=== PATIENT | female | born 1995 | race Caucasian/White ===

== ENCOUNTER 2016-08-05 08:18 | Emergency (ER) | payer OTHER ==
[~2016-08-05] VITALS: Ht 162.6 cm; Wt 76.0 kg
[~2016-08-05 08:18] MED LIST: IBUP400T22 PO
[2016-08-05 08:29] VITALS: Ht 162.6 cm; Wt 76.0 kg
[2016-08-05] MEDS ORDERED: ONDANSETRON 4 MG INJ IV STA (09:22)
[2016-08-05] MEDS ORDERED: morphine 4 MG/ML VIAL IV STA (09:22)
--- NOTE | 2016-08-05 10:05 | ERD ---
ER Documentation Chief Complaint Date/Time DATE: 08/05/16 TIME: 10:05 Chief Complaint PELVIC PAIN RADIATING UP HPI Is a 20-year-old female who presents the emergency department today complaining of lower abdominal pain for the past 2-3 days. States she has some nausea. Denies any fevers or chills, dysuria, vaginal discharge. States she is sexually active with one partner and just finished her menstrual cycle. ROS All systems reviewed and are negative except as per history of present illness. Medications Home Meds Active Scripts Ondansetron Hcl* (Zofran*) 4 Mg Tablet, 4 MG PO Q6H for NAUSEA AND/OR VOMITING, #30 TAB Prov:JOEL STUBBS PA-C 08/05/16 Naproxen* (Naprosyn*) 500 Mg Tablet, 500 MG PO BID Y for PAIN AND/OR INFLAMMATION, #30 TAB Prov:JOEL STUBBS PA-C 08/05/16 Hydrocodone/Acetaminophen ([place] 5-325 Tablet) 1 Each Tablet, 1 TAB PO Q6H Y for PAIN, #10 TAB Prov:JOEL STUBBS PA-C 08/05/16 Ibuprofen* (Motrin*) 400 Mg Tab, 400 MG PO Q6H Y for PAIN AND OR ELEVATED TEMP, #30 Prov:ANA HAMMOND PA-C 01/09/15 Allergies Allergies: Coded Allergies: No Known Allergy (Unverified , 12/07/14) PMhx/Soc Medical and Surgical Hx: pt denies Medical Hx, pt denies Surgical Hx History of Surgery: No Anesthesia Reaction: No Hx Neurological Disorder: No Hx Respiratory Disorders: No Hx Cardiac Disorders: No Hx Psychiatric Problems: No Hx Miscellaneous Medical Probl: No Hx Alcohol Use: No Hx Substance Use: No Hx Tobacco Use: No Smoking Status: Never smoker Physical Exam Vitals Vital Signs Date Time Temp Pulse Resp B/P Pulse Ox O2 Delivery O2 Flow Rate FiO2 08/05/16 08:29 98.4 60 18 111/81 98 Physical Exam Const: Mild distress Head: Atraumatic Eyes: Normal Conjunctiva ENT: Normal External Ears, Nose and Mouth. Neck: Full range of motion..~ No meningismus. Resp: Clear to auscultation bilaterally Cardio: Regular rate and rhythm, no murmurs Abd: Soft, diffuse lower abdominal pain, non distended. Normal bowel sounds. No right upper quadrant pain. Skin: No petechiae or rashes Back: No midline or flank tenderness. No CVA tenderness. Ext: No cyanosis, or edema Neur: Awake and alert Psych: Normal Mood and Affect Result Diagram: 08/05/16 1155 08/05/16 1155 Results 24 hrs Laboratory Tests Test 08/05/16 09:57 08/05/16 11:55 Urine Color LT. YELLOW Urine Clarity CLEAR Urine pH 6.0 Urine Specific [place] 1.025 Urine Ketones NEGATIVE Urine Nitrite NEGATIVE Urine Bilirubin NEGATIVE Urine Urobilinogen 0.2 E.U./dL Urine Leukocyte Esterase TRACE Urine Microscopic RBC NONE SEEN/HPF Urine Microscopic WBC 0-2/HPF Urine Squamous Epithelial Cells FEW Urine Bacteria FEW Urine Hemoglobin NEGATIVE Urine Glucose NEGATIVE% Urine Total Protein NEGATIVE White Blood Count 14.710^3/ul Red Blood Count 4.6410^6/ul Hemoglobin 14.1g/dl Hematocrit 40.9% Mean Corpuscular Volume 88.1fl Mean Corpuscular Hemoglobin 30.4pg Mean Corpuscular Hemoglobin Concent 34.5g/dl Red Cell Distribution Width 12.7% Platelet Count 01197^3/UL Mean Platelet Volume 8.7fl Neutrophils % 79.2% Lymphocytes % 14.7% Monocytes % 4.6% Eosinophils % 0.7% Basophils % 0.3% Nucleated Red Blood Cells % 0.0/100WBC Neutrophils # 11.610^3/ul Lymphocytes # 2.210^3/ul Monocytes # 0.710^3/ul Eosinophils # 0.110^3/ul Basophils # 0.110^3/ul Nucleated Red Blood Cells # 0.010^3/ul Sodium Level 138mmol/L Potassium Level 4.9mmol/L Chloride Level 105mmol/L Carbon Dioxide Level 27mmol/L Anion Gap 11 Blood Urea Nitrogen 13mg/dl Creatinine 0.55mg/dl Glucose Level 85mg/dl Calcium Level 9.1mg/dl Total Bilirubin 0.6mg/dl Direct Bilirubin 0.00mg/dl Indirect Bilirubin 0.6mg/dl Aspartate Amino Transf (AST/SGOT) 36IU/L Alanine Aminotransferase (ALT/SGPT) 20IU/L Alkaline Phosphatase 71IU/L Total Protein 7.8g/dl Albumin 4.9g/dl Globulin 2.90g/dl Albumin/Globulin Ratio 1.68 Lipase 102U/L Current Medications Medications (Trade) Dose Ordered Sig/Lamberto Route PRN Reason Start Time Stop Time Status Last Admin Dose Admin Morphine Sulfate (morphine) 4 mg ONCE STAT IV 08/05/16 09:22 08/05/16 09:24 DC 08/05/16 10:09 Ondansetron HCl (Zofran Inj) 4 mg ONCE STAT IV 08/05/16 09:22 08/05/16 09:24 DC 08/05/16 10:07 Ketorolac Tromethamine (Toradol) 30 mg ONCE STAT IV 08/05/16 13:16 08/05/16 13:17 DC 08/05/16 13:43 DIAGNOSTIC IMAGING REPORT Patient: HERMILO NICOLAS : 1995 Age: 20 Sex: F MR #: [id number] DOS: 08/05/16921 Ordering MD: JOEL STUBBS PA-C Location: [facility] Room/Bed: PROCEDURE: CT Abdomen and Pelvis without contrast. CLINICAL INDICATION: Lower abdominal pain for 3 days. TECHNIQUE: CT scan of the abdomen and pelvis without contrast was performed on a multidetector high-resolution CT scanner. The patient was scanned without intravenous contrast. Coronal and sagittal reformatted images were obtained from the axial source images. Images were reviewed on a high-resolution PACS workstation. The total exam CTDI equals 9.88 mGy and the total exam DLP equals 552.9 mGy-cm. One or the following dose reduction techniques were used: -Automated exposure control. -Adjustment of the mA and/or KV according to patient's size. -Use of iterative reconstruction technique. COMPARISON: None. FINDINGS: Lung Bases: Unremarkable. GI:. Unremarkable. Liver: Unremarkable. Gallbladder: Unremarkable. Pancreas: Unremarkable. Spleen: Unremarkablel Adrenals: Unremarkable. Kidneys: There is a faintly calcified nonobstructing 2.0 mm calculus in the lower pole of the right kidney. There is no evidence of ureteral lithiasis. Bladder: Unremarkable. Pelvic Organs: There is a 4.0 cm right ovarian cyst. Skeleton: Normal for age. Other: N/A IMPRESSION: 1. Faintly calcified nonobstructing 2.0 mm calculus in the lower pole right kidney. No evidence of ureteral lithiasis or obstructive uropathy. 2. Normal appearing appendix visualized. 3. 4.0 cm right ovarian cyst. This may be characterized further with ultrasound as appropriate clinically. RPTAT: AACC Physician Fer Date Time Electronically viewed and signed by Arya Hugo Physician on 08/05/2016 10: 53 JH/ CC: JOEL STUBBS PA-C DIAGNOSTIC IMAGING REPORT Patient: HERMILO NICOLAS : 1995 Age: 20 Sex: F MR #: [id number] DOS: 08/05/16 0000 Ordering MD: JOEL STUBBS PA-C Location: [facility] Room/Bed: PROCEDURE: US Pelvis. CLINICAL INDICATION: 20-year-old female with pelvic pain. TECHNIQUE: Multiple sonographic images of the pelvis were obtained utilizing a transabdominal and endovaginal technique. The images were reviewed on a PACS workstation. COMPARISON: None. FINDINGS: The uterus is visualized and measures 8.5 cm sagittal by 4.2 cm AP by 5.5 cm transverse. The endometrial echo complex is normal and measures 1.5 cm. There is no evidence for free fluid. The right ovary has a normal echotexture and measures 4.9 x 3.6 by 3.8 cm. Contains a cyst measuring 2 x 2.7 by 2.7 cm . The left ovary has a normal echotexture and measures to point a by 1.7 by 1.9 cm. There is normal blood flow to the ovaries.. No adnexal masses are noted. IMPRESSION: 1. 2.7 x 2.7 x 2 cm minimally complex right ovarian cyst . A minimally complex right ovarian cyst or hemorrhagic right ovarian cyst might be considered in the differential diagnosis. 2. No free fluid is noted in the cul-de-sac. RPTAT:AAJJ Physician Miles Date Time Electronically viewed and signed by Kristian Cahnce Physician on 08/05/2016 14:39 SHAAN/ CC: JOEL STUBBS PA-C Procedures/MDM This a 20-year-old female who presents to the emergency department today complaining of diffuse lower abdominal pain the past 2-3 days. Given this I did obtain laboratory workup as well as imaging. Laboratory work is an elevated white blood cell count of 14.7. She is not anemic. Platelets are within normal limits. Electrolytes are within normal limits. Glucose is within normal limits. Liver function within normal limits. Lipase is within normal limits. UA shows trace leukocyte esterase. Patient denies any dysuria and this is likely a dirty catch Urine test is negative CT abdomen pelvis noncontrast shows a faintly calcified nonobstructing 2 mm calculus in the lower pole of the right kidney. There is no evidence of ureterolithiasis or obstructive uropathy. There is a normal-appearing appendix. There is a 4 cm right ovarian cyst. Patient was given morphine and Zofran here in the emergency department and pain improved for short period of time but then returned. She was then given Toradol. Given patient's continued pain I did at that obtaining an ultrasound Ultrasound shows a 2.7 x 2.7 x 2 cm minimally complex right ovarian cyst. May also be hemorrhagic right ovarian cyst. There is normal blood flow to the ovaries. There is no adnexal mass. There is no free fluid. Patient's lower abdominal pain likely related to her ovarian cyst and possible small nonobstructing calculus. Patient does have an elevated white blood cell count and is likely reactive. Patient was given a prescription for short course of [place], Naprosyn and Zofran. She was instructed to follow-up with an [employer]. I explained her that she may experience this type of pain every month. Patient understood At this time the patient is stable for discharge and outpatient management. Patient should follow up with their PCP in the next 1-2 days. They may return to the emergency department sooner for any persistent or worsening of symptoms. Patient understood and agreed with the plan. Departure Diagnosis: Primary Impression: Ovarian cyst Laterality: right Qualified Code: N83.201 - Cyst of right ovary Additional Impression: Kidney stone Condition: Fair PROJOEL ROSS PA-C Aug 05, 2016 10:05
--- NOTE | 2016-08-05 10:53 | RADRPT ---
PROCEDURE: CT Abdomen and Pelvis without contrast. CLINICAL INDICATION: Lower abdominal pain for 3 days. TECHNIQUE: CT scan of the abdomen and pelvis without contrast was performed on a multidetector hig h-resolution CT scanner. The patient was scanned without intravenous contrast. Coronal and sagittal reformatted images were obtained from the axial source images. Images were reviewed on a high-resol [facility] PACS workstation. The total exam CTDI equals 9.88 mGy and the total exam DLP equals 552.9 mGy- cm. One or the following dose reduction techniques were used: -Automated exposure control. -Adjustment of the mA and/or KV according to patient's size. -Use of iterative reconstruction technique. COMPARISON: None. FINDINGS: Lung Bases: Unremarkable. GI:. Unremarkable. Liver: Unremarkable. Gallbladder: Unremarkable. Pancreas: Unremarkable. Spleen: Unremarkablel Adrenals: Unremarkable. Kidneys: There is a faintly calcified nonobstructing 2.0 mm calculus in the lower pole of the right kidney. There is no evidence of ureteral lithiasis. Bladder: Unremarkable. Pelvic Organs: There is a 4.0 cm right ovarian cyst. Skeleton: Normal for age. Other: N/A IMPRESSION: 1. Faintly calcified nonobstructing 2.0 mm calculus in the lower pole right kidney. No evidence of ureteral lithiasis or obstructive uropathy. 2. Normal appearing appendix visualized. 3. 4.0 cm right ovarian cyst. This may be characterized further with ultrasound as appropriate cli nically. RPTAT: AACC Physician Fer Date Time Electronically viewed and signed by Physician Fer on 08/05/2016 10:53 /
[2016-08-05 12:03] LABS: ADD SCAN DIFF NO
[2016-08-05 12:07] LABS: BASOPHIL # 0.1 10^3/ul (0.0-0.1); BASOPHILS % 0.3 % (0.0-2.0); EOSINOPHILS # 0.1 10^3/ul (0.0-0.5); EOSINOPHILS % 0.7 % (0.0-7.0); HEMATOCRIT 40.9 % (37.0-47.0); HEMOGLOBIN 14.1 g/dl (12.0-16.0); LYMPHOCYTES # 2.2 10^3/ul (0.8-2.9); LYMPHOCYTES % 14.7 % (18.0-55.0); MEAN CORPUSCULAR HEMOGLOBIN 30.4 pg (29.0-33.0); MEAN CORPUSCULAR HGB CONC 34.5 g/dl (32.0-37.0); MEAN CORPUSCULAR VOLUME 88.1 fl (72.0-104.0); MEAN PLATELET VOLUME 8.7 fl (7.4-10.4); MONOCYTE # 0.7 10^3/ul (0.3-0.9); MONOCYTES % 4.6 % (0.0-13.0); NEUTROPHIL # 11.6 10^3/ul (1.6-7.5); NEUTROPHILS % 79.2 % (30.0-74.0); PLATELET COUNT 227 10^3/UL (140-415); RED BLOOD COUNT 4.64 10^6/ul (4.20-5.40); RED CELL DISTRIBUTION WIDTH 12.7 % (11.5-14.5); WHITE BLOOD COUNT 14.7 10^3/ul (4.8-10.8)
[2016-08-05 12:08] LABS: ADD UMIC YES; UR BILIRUBIN (Dip) NEGATIVE (NEGATIVE); UR BLOOD (Dip) NEGATIVE (NEGATIVE); UR CLARITY CLEAR (CLEAR); UR COLOR LT. YELLOW (YELLOW); UR GLUCOSE (Dip) NEGATIVE (NEGATIVE); UR KETONES (Dip) NEGATIVE (NEGATIVE); UR LEUKOCYTE ESTERASE (Dip) TRACE (NEGATIVE); UR NITRITE (Dip) NEGATIVE (NEGATIVE); UR TOTAL PROTEIN (Dip) NEGATIVE (NEGATIVE); UR UROBILINOGEN (Dip) 0.2 E.U./dL (0.1-1.0)
[2016-08-05 12:22] LABS: ALBUMIN 4.9 g/dl (3.3-4.9); ALBUMIN/GLOBULIN RATIO 1.68; BILIRUBIN,INDIRECT 0.6 mg/dl (0-1.1); BILIRUBIN,TOTAL 0.6 mg/dl (0.2-1.3); CALCIUM 9.1 mg/dl (8.4-10.2); CREATININE 0.55 mg/dl (0.44-1.00); POTASSIUM 4.9 mmol/L (3.5-5.1); TOTAL PROTEIN 7.8 g/dl (6.1-8.1)
[2016-08-05 12:25] LABS: UR BACTERIA FEW; UR SQUAMOUS EPITHELIAL CELL FEW; URINE RBCS NONE SEEN /HPF (0)
[2016-08-05] MEDS ORDERED: KETOROLAC 30 MG INJ IV STA (13:16)
--- NOTE | 2016-08-05 14:39 | RADRPT ---
PROCEDURE: US Pelvis. CLINICAL INDICATION: 20-year-old female with pelvic pain. TECHNIQUE: Multiple sonographic images of the pelvis were obtained utilizing a transabdominal and endovaginal technique. The images were reviewed on a PACS workstation. COMPARISON: None. FINDINGS: The uterus is visualized and measures 8.5 cm sagittal by 4.2 cm AP by 5.5 cm transverse. The endomet rial echo complex is normal and measures 1.5 cm. There is no evidence for free fluid. The right ovar y has a normal echotexture and measures 4.9 x 3.6 by 3.8 cm. Contains a cyst measuring 2 x 2.7 by 2 .7 cm . The left ovary has a normal echotexture and measures to point a by 1.7 by 1.9 cm. There is normal blood flow to the ovaries.. No adnexal masses are noted. IMPRESSION: 1. 2.7 x 2.7 x 2 cm minimally complex right ovarian cyst . A minimally complex right ovarian cyst or hemorrhagic right ovarian cyst might be considered in the differential diagnosis. 2. No free fluid is noted in the cul-de-sac. RPTAT:AAJJ Physician Miles Date Time Electronically viewed and signed by Physician Miles on 08/05/2016 14:39 /
[2016-08-05] MEDS ORDERED: NAPR-260 PO (14:46)
[2016-08-05] MEDS ORDERED: HYDR-906 PO (14:46)
[2016-08-05] MEDS ORDERED: ONDA4TAB8 PO (14:47)
[2016-08-05 14:54] VITALS: BP 110/55; PULSE 69; RESP 20; TEMP 98.3
== END 2016-08-05 14:57 | disposition home or self-care (01) ==
LOC: FTE 08:18
DX: N83.201 Unspecified ovarian cyst, right side (principal); N20.0 Calculus of kidney; R11.0 Nausea
CPT/HCPCS: 36415; 74176; 76856; 80053; 81001; 83690; 85025; 96374; 96375; J1885; J2270; J2405; Z7502

== ENCOUNTER 2016-09-07 05:40 | Emergency (ER) | payer OTHER ==
[~2016-09-07] VITALS: Ht 162.6 cm; Wt 76.0 kg
[~2016-09-07 05:40] MED LIST changes: +HYDR-906 PO; +NAPR-260 PO; +ONDA4TAB8 PO
[2016-09-07 05:42] VITALS: Ht 162.6 cm; Wt 76.0 kg
[2016-09-07 06:08] LABS: URINE BLOOD (Dip) POC 2+ (NEGATIVE)
[2016-09-07] MEDS ORDERED: SOD CHLORIDE 0.9% 1,000 ML IV STA (06:08)
[2016-09-07] MEDS ORDERED: KETOROLAC 30 MG INJ IV STA (06:08)
[2016-09-07] MEDS ORDERED: ONDANSETRON 4 MG INJ IV STA (06:08)
--- NOTE | 2016-09-07 06:27 | ERD ---
ER Documentation Chief Complaint Date/Time DATE: 09/07/16 TIME: 06:26 Chief Complaint right flank pain since 3 hours ago HPI 20-year-old female history of recently diagnosed kidney stone on the right side comes emergency department with sharp sudden right-sided flank pain that started 3 hours ago. She states that it woke her up out of sleep, and is worse when she moves, is associated with nausea vomiting. She describes as sharp and achy, and oscillating pain. She has a primary care doctor, she was previously seen was diagnosed with both the kidney stone as well as a right ovarian cyst and has had follow-up with [facility]. Since then, she has not had any fevers or chills, hematuria. She has not had any painful urination, urgency or frequency. Prior to arriving she took an ibuprofen. ROS All systems reviewed and are negative except as per history of present illness. Medications Home Meds Active Scripts Ondansetron Hcl* (Zofran*) 4 Mg Tablet, 4 MG PO Q6H for NAUSEA AND/OR VOMITING, #30 TAB Prov:JOEL STUBBS PA-C 08/05/16 Naproxen* (Naprosyn*) 500 Mg Tablet, 500 MG PO BID Y for PAIN AND/OR INFLAMMATION, #30 TAB Prov:JOEL STUBBS PA-C 08/05/16 Hydrocodone/Acetaminophen ([place] 5-325 Tablet) 1 Each Tablet, 1 TAB PO Q6H Y for PAIN, #10 TAB Prov:JOEL STUBBS PA-C 08/05/16 Ibuprofen* (Motrin*) 400 Mg Tab, 400 MG PO Q6H Y for PAIN AND OR ELEVATED TEMP, #30 Prov:ANA HAMMOND PA-C 01/09/15 Allergies Allergies: Coded Allergies: No Known Allergy (Unverified , 12/07/14) PMhx/Soc History of Surgery: No Anesthesia Reaction: No Hx Neurological Disorder: No Hx Respiratory Disorders: No Hx Cardiac Disorders: No Hx Psychiatric Problems: No Hx Miscellaneous Medical Probl: Yes (Kidney stone, ovarian cyst) Hx Alcohol Use: No Hx Substance Use: No Hx Tobacco Use: No Smoking Status: Never smoker Physical Exam Vitals Vital Signs Date Time Temp Pulse Resp B/P Pulse Ox O2 Delivery O2 Flow Rate FiO2 09/07/16 05:42 97.7 64 20 111/77 100 Physical Exam General: Well-developed, well-nourished. The patient appears in no acute distress. HEENT: Head is normocephalic, atraumatic. No scleral icterus. Neck: Supple. Nontender. Lungs: Clear to auscultation. Normal air movement. Heart: Regular rate and rhythm. S1 and S2 are normal. No murmurs, gallops, or rubs. Abdomen: Soft, nontender, nondistended. Bowel sounds are normoactive. Extremities: No clubbing or cyanosis. Normal pulses. Moving extremities x 4. No weakness. Neurologic: Alert and oriented 3. No focal deficits. Skin: Normal turgor. No rash or lesions. Result Diagram: 09/07/1640 09/07/1640 Results 24 hrs Laboratory Tests Test 09/07/16 06:10 09/07/16 06:14 09/07/16 06:40 Urine Color STRAW Urine Clarity CLEAR Urine pH 7.0 Urine Specific [place] 1.003 Urine Ketones NEGATIVEmg/dL Urine Nitrite NEGATIVEmg/dL Urine Bilirubin NEGATIVEmg/dL Urine Urobilinogen NEGATIVEmg/dL Urine Leukocyte Esterase 1+Jennifer/ul Urine Microscopic RBC 1/HPF Urine Microscopic WBC 12/HPF Urine Bacteria FEW/HPF Urine Hemoglobin 3+mg/dL Urine Glucose NEGATIVEmg/dL Urine Total Protein NEGATIVEmg/dl Bedside Urine pH (LAB) 7.0 Bedside Urine Protein (LAB) Negative Bedside Urine Glucose (UA) Negative Bedside Urine Ketones (LAB) Negative Bedside Urine Blood 2+ Bedside Urine Nitrite (LAB) Negative Bedside Urine Leukocyte Esterase (L 1+ White Blood Count 13.610^3/ul Red Blood Count 4.2310^6/ul Hemoglobin 12.9g/dl Hematocrit 37.5% Mean Corpuscular Volume 88.7fl Mean Corpuscular Hemoglobin 30.5pg Mean Corpuscular Hemoglobin Concent 34.4g/dl Red Cell Distribution Width 12.6% Platelet Count 66598^3/UL Mean Platelet Volume 9.2fl Neutrophils % 67.2% Lymphocytes % 21.3% Monocytes % 8.1% Eosinophils % 2.6% Basophils % 0.4% Nucleated Red Blood Cells % 0.0/100WBC Neutrophils # 9.110^3/ul Lymphocytes # 2.910^3/ul Monocytes # 1.110^3/ul Eosinophils # 0.410^3/ul Basophils # 0.110^3/ul Nucleated Red Blood Cells # 0.010^3/ul Sodium Level 144mmol/L Potassium Level 4.0mmol/L Chloride Level 102mmol/L Carbon Dioxide Level 28mmol/L Anion Gap 18 Blood Urea Nitrogen 12mg/dl Creatinine 0.64mg/dl Glucose Level 90mg/dl Calcium Level 9.4mg/dl Total Bilirubin 0.2mg/dl Direct Bilirubin 0.00mg/dl Indirect Bilirubin 0.2mg/dl Aspartate Amino Transf (AST/SGOT) 25IU/L Alanine Aminotransferase (ALT/SGPT) 40IU/L Alkaline Phosphatase 88IU/L Total Protein 7.5g/dl Albumin 4.4g/dl Globulin 3.10g/dl Albumin/Globulin Ratio 1.41 Lipase 71U/L Current Medications Medications (Trade) Dose Ordered Sig/Lamberto Route PRN Reason Start Time Stop Time Status Last Admin Dose Admin Sodium Chloride (NS) 1,000 ml @ 1,000 mls/hr Q1H STAT IV 09/07/16 06:08 09/07/16 07:07 DC 09/07/16 06:36 Ondansetron HCl (Zofran Inj) 4 mg ONCE STAT IV 09/07/16 06:08 09/07/16 06:10 DC 09/07/16 06:36 Ketorolac Tromethamine (Toradol) 30 mg ONCE STAT IV 09/07/16 06:08 09/07/16 06:10 DC 09/07/16 06:36 Tamsulosin HCl (Flomax) 0.4 mg ONCE ONCE PO 09/07/16 06:30 09/07/16 06:31 DC Procedures/MDM ED course: Patient's previous visit was reviewed, patient was found to have a renal stone that is 2 mm. All labs are unremarkable. Repeat labs were drawn today as well as a urine, she was given a fluid bolus of normal saline, for pain she was given Toradol 30 mg IV as well as Zofran 4 mg IV. Nursing staff notes that the patient has eloped from emergency department. It appears that she has pulled out her own IV and eloped from the emergency room. Medical decision making: This 20-year-old female presents with right flank pain , patient has recently been seen and had a CT scan that showed a 2 mm renal stone. This is likely the cause of her pain. Rash she had lab work done, all workup was unremarkable, kidney function is normal. Urine analysis shows 1+ leukocyte esterase, given her renal stone I have called the patient however there is no answer her phone does not accept messages. Patient likely will need antibiotics, and urology follow-up as well. Departure Diagnosis: Primary Impression: Flank pain Condition: Stable LELAND SIMMS PA-C Sep 07, 2016 06:27
[2016-09-07] MEDS ORDERED: TAMSULOSIN (SR) 0.4 MG CAP PO ONE (06:30)
[2016-09-07 07:12] LABS: BASOPHIL # 0.1 10^3/ul (0.0-0.1); BASOPHILS % 0.4 % (0.0-2.0); EOSINOPHILS # 0.4 10^3/ul (0.0-0.5); EOSINOPHILS % 2.6 % (0.0-7.0); HEMATOCRIT 37.5 % (37.0-47.0); HEMOGLOBIN 12.9 g/dl (12.0-16.0); LYMPHOCYTES # 2.9 10^3/ul (0.8-2.9); LYMPHOCYTES % 21.3 % (18.0-55.0); MEAN CORPUSCULAR HEMOGLOBIN 30.5 pg (29.0-33.0); MEAN CORPUSCULAR HGB CONC 34.4 g/dl (32.0-37.0); MEAN CORPUSCULAR VOLUME 88.7 fl (72.0-104.0); MEAN PLATELET VOLUME 9.2 fl (7.4-10.4); MONOCYTE # 1.1 10^3/ul (0.3-0.9); MONOCYTES % 8.1 % (0.0-13.0); NEUTROPHIL # 9.1 10^3/ul (1.6-7.5); NEUTROPHILS % 67.2 % (30.0-74.0); PLATELET COUNT 244 10^3/UL (140-415); RED BLOOD COUNT 4.23 10^6/ul (4.20-5.40); RED CELL DISTRIBUTION WIDTH 12.6 % (11.5-14.5); WHITE BLOOD COUNT 13.6 10^3/ul (4.8-10.8)
[2016-09-07 07:22] LABS: ADD UMIC YES; UR ASCORBIC ACID NEGATIVE (NEGATIVE); UR BACTERIA FEW /HPF (NONE SEEN); UR BILIRUBIN (Dip) NEGATIVE (NEGATIVE); UR BLOOD (Dip) 3+ mg/dL (NEGATIVE); UR CLARITY CLEAR (CLEAR); UR COLOR STRAW (YELLOW); UR GLUCOSE (Dip) NEGATIVE (NEGATIVE); UR KETONES (Dip) NEGATIVE (NEGATIVE); UR LEUKOCYTE ESTERASE (Dip) 1+ Leu/ul (NEGATIVE); UR NITRITE (Dip) NEGATIVE (NEGATIVE); UR RBC 1 /HPF (0-5); UR SPECIFIC GRAVITY (Dip) 1.003 (1.003-1.030); UR TOTAL PROTEIN (Dip) NEGATIVE (NEGATIVE); UR UROBILINOGEN (Dip) NEGATIVE (NEGATIVE)
[2016-09-07 07:30] LABS: ALBUMIN 4.4 g/dl (3.3-4.9); ALBUMIN/GLOBULIN RATIO 1.41; BILIRUBIN,INDIRECT 0.2 mg/dl (0-1.1); BILIRUBIN,TOTAL 0.2 mg/dl (0.2-1.3); CALCIUM 9.4 mg/dl (8.4-10.2); CREATININE 0.64 mg/dl (0.44-1.00); TOTAL PROTEIN 7.5 g/dl (6.1-8.1)
== END 2016-09-07 07:49 | disposition left against medical advice (07) ==
LOC: FTE 05:40
DX: R10.9 Unspecified abdominal pain (principal); R11.2 Nausea with vomiting, unspecified
CPT/HCPCS: 36415; 80053; 81001; 83690; 85025; 96374; 96375; J1885; J2405; J7030; Z7502; Z7610; 81003

== ENCOUNTER 2016-11-05 18:53 | Emergency (ER) | payer SELFPAY | END 2016-11-05 20:06 | disposition left against medical advice (07) | LOC: E/R 18:53 | DX: Z53.21 Procedure and treatment not carried out due to patient leaving prior to being seen by health care provider (principal) ==

== ENCOUNTER 2017-06-18 07:23 | Emergency (ER) | END 2017-06-18 10:47 | disposition home or self-care (01) ==

== ENCOUNTER 2017-11-12 01:42 | Emergency (ER) | END 2017-11-12 04:50 | disposition home or self-care (01) ==

== ENCOUNTER 2018-02-17 11:30 | Emergency (ER) | payer BC ==
[~2018-02-17] VITALS: Wt 72.3 kg
[~2018-02-17 11:30] MED LIST changes: +CIPR500T4 PO; +HYDR-4011 PO; -HYDR-906 PO; +IBUP-1561 PO; -IBUP400T22 PO; -NAPR-260 PO; +NAPR-985 PO; +ONDA4TAB14 PO; +PHEN-538 PO
[2018-02-17 11:33] VITALS: BP 125/83; PULSE 99; RESP 20
[2018-02-17] MEDS ORDERED: ONDANSETRON (ODT) 4 MG TAB ODT STA (11:46)
[2018-02-17] MEDS ORDERED: ONDA4TAB14 PO (12:11)
[2018-02-17] MEDS ORDERED: D-ME473S2 PO (12:11)
[2018-02-17] MEDS ORDERED: ACET500C5 PO (12:11)
--- NOTE | 2018-02-17 13:04 | ERD ---
ER Documentation Chief Complaint Chief Complaint cold s/s, n/v, fever. gena at 0030. HPI 22-year-old female patient with no significant past medical history presents to the ED complaining of cough, congestion, fever, vomiting that started 4 days ago. Reports that she has not tried taking any medications. Patient reports that she is had 2-3 episodes of nonbilious nonbloody vomiting. Denies any fever, chills, abdominal pain, diarrhea, neck stiffness. ROS All systems reviewed and are negative except as per history of present illness. Medications Home Meds Active Scripts Acetaminophen* (Tylophen*) 500 Mg Capsule, 1 CAP PO Q6H PRN for PAIN AND OR ELEVATED TEMP, #20 CAP Prov:JACE URIOSTEGUI PA-C 02/17/18 Dextromethorphan Hb-Promethazine Hcl* (Promethazine DM* Syrup) 473 Ml Syrup, 5 ML PO Q6 PRN for COUGH, #120 ML Prov:JACE URIOSTEGUI PA-C 02/17/18 Ondansetron (Ondansetron Odt) 4 Mg Tab.rapdis, 4 MG PO Q6H PRN for NAUSEA AND/OR VOMITING, #10 TAB Prov:JACE URIOSTEGUI PA-C 02/17/18 Ciprofloxacin Hcl* (Ciprofloxacin Hcl*) 500 Mg Tablet, 500 MG PO BID for 10 Days, TAB Prov:DEBORAH RAMIREZ NP 11/12/17 Phenazopyridine Hcl* (Pyridium*) 200 Mg Tab, 200 MG PO TID PRN for URINARY PAIN, #6 TAB Prov:DEBORAH RAMIREZ NP 11/12/17 Ondansetron (Ondansetron Odt) 4 Mg Tab.rapdis, 4 MG PO Q6H PRN for NAUSEA AND/OR VOMITING, #10 TAB Prov:DEBORAH RAMIREZ NP 11/12/17 Hydrocodone/Acetaminophen ([place] 5-325 Tablet) 1 Each Tablet, 1 TAB PO Q6H PRN for SEVERE PAIN LEVEL 7-10, #7 TAB Prov:DEBORAH RAMIREZ NP 11/12/17 Ondansetron Hcl* (Zofran*) 4 Mg Tablet, 4 MG PO Q8H PRN for NAUSEA AND/OR VOMITING, #30 TAB Prov:TIMOTHY FISHER 06/18/17 Ondansetron Hcl* (Zofran*) 4 Mg Tablet, 4 MG PO Q6H for NAUSEA AND/OR VOMITING, #30 TAB Prov:JOEL STUBBSC 08/05/16 Naproxen* (Naprosyn*) 500 Mg Tablet, 500 MG PO BID PRN for PAIN AND/OR INFLAMMATION, #30 TAB Prov:JOEL STUBBSC 08/05/16 Hydrocodone/Acetaminophen ([place] 5-325 Tablet) 1 Each Tablet, 1 TAB PO Q6H PRN for PAIN, #10 TAB Prov:JOEL STUBBS PA-C 08/05/16 Ibuprofen* (Motrin*) 400 Mg Tab, 400 MG PO Q6H PRN for PAIN AND OR ELEVATED TEMP, #30 Prov:ANA HAMMONDC 01/09/15 Allergies Allergies: Coded Allergies: No Known Allergy (Unverified , 12/07/14) PMhx/Soc History of Surgery: Yes (removal of cyst to tailbone) Anesthesia Reaction: No Hx Neurological Disorder: No Hx Respiratory Disorders: No Hx Cardiac Disorders: No Hx Psychiatric Problems: No Hx Miscellaneous Medical Probl: Yes (Kidney stone, ovarian cyst) Hx Alcohol Use: No Hx Substance Use: Yes (marijuana) Hx Tobacco Use: No FmHx Family History: No diabetes, No coronary disease Physical Exam Vitals Vital Signs Date Temp Pulse Resp B/P (MAP) Pulse Ox O2 O2 Flow FiO2 Time Delivery Rate 02/17/18 99.2 99 20 125/83 98 11:33 (97) Physical Exam Const: Umc-gpb-mkeqcbhvi, well-nourished. In no acute distress. Head: Atraumatic, normocephalic Eyes: Normal Conjunctiva without injection. No purulent discharge. PERRL. EOMI ENT: Normal external ear. Ear canal without erythema. Tympanic membrane pearly munoz without effusion or bulging. Nasal canal clear with normal turbinates. Moist oropharynx without tonsillar exudates. Non-erythematous pharynx. Uvula midline. No drooling. No trismus. Neck: Full range of motion. No meningismus. No cervical lymphadenopathy. Resp: Clear to auscultation bilaterally. No wheezing, rhonchi, rales, or crackles. No accessory muscle use. No retractions. Cardio: Regular rate and rhythm. No murmurs, rubs or gallops. Abd: Soft, non tender, non distended. Normal bowel sounds. No palpable masses. No rebound tenderness. No guarding. Skin: No petechiae or rashes Back: No midline tenderness. No CVA tenderness. Ext: No cyanosis, or edema. Neur: Awake and alert. Psych: Normal Mood and Affect Results 24 hrs Laboratory Tests Test 02/17/18 11:56 POC Beta HCG, Qualitative NEGATIVE Current Medications Medications Dose Sig/Lamberto Start Time Status Last (Trade) Ordered Route PRN Stop Time Admin Dose Reason Admin Ondansetron 4 mg ONCE STAT 02/17/18 DC 02/17/18 HCl (Zofran ODT 11:46 02/17/18 11:54 Odt) 11:48 Procedures/MDM 22-year-old female patient with no significant past medical history presents to the ED complaining of cough, congestion, nausea, vomiting. Patient is afebrile and nontoxic-appearing. Urine negative. Patient was given Zofran here in the ED and tolerated oral intake. She had a successful p.o. challenge. This patient presents to the ED with symptoms consistent with a viral syndrome. Patient is afebrile and has normal vital signs. Patient's physical exam include lungs which were clear to auscultation and a normal pulse oximetry. There is a low suspicion for a croup, pneumonia, pneumothorax, strep pharyngitis, otitis media, otitis externa, sinusitis, peritonsillar abscess, foreign body aspiration, mastoiditis, retropharyngeal abscess, epiglottitis, meningitis, sepsis or other emergent conditions. Diagnosis: Cough, Vomiting Discharge medications: Tylenol, Promethazine DM, Zofran Follow up with primary care physician in 1-2 days. Instructed patient to return to the ED sooner for any worsening symptoms. Patient's questions were answered. Patient is hemodynamically stable. Patient understood and agreed with discharge plan. Patient discharged stable. Disclaimer: Inadvertent spelling and grammatical errors are likely due to EHR/dictation software use and do not reflect on the overall quality of patient care. Also, please note that the electronic time recorded on this note does not necessarily reflect the actual time of the patient encounter. Departure Diagnosis: Primary Impression: Cough Additional Impression: Vomiting Vomiting type: unspecified Vomiting Intractability: unspecified Nausea presence: unspecified Qualified Codes: R11.10 - Vomiting, unspecified Condition: Stable Patient Instructions: Uri, Viral, No Abx (Adult) Referrals: [facility] YOU HAVE RECEIVED A MEDICAL SCREENING EXAM AND THE RESULTS INDICATE THAT YOU DO NOT HAVE A CONDITION THAT REQUIRES URGENT TREATMENT IN THE EMERGENCY DEPARTMENT. FURTHER EVALUATION AND TREATMENT OF YOUR CONDITION CAN WAIT UNTIL YOU ARE SEEN IN YOUR DOCTORS OFFICE WITHIN THE NEXT 1-2 DAYS. IT IS YOUR RESPONSIBILITY TO MAKE AN APPOINTMENT FOR FOLOW-UP CARE. IF YOU HAVE A PRIMARY DOCTOR --you should call your primary doctor and schedule an appointment IF YOU DO NOT HAVE A PRIMARY DOCTOR YOU CAN CALL OUR PHYSICIAN REFERRAL HOTLINE AT IF YOU CAN NOT AFFORD TO SEE A PHYSICIAN YOU CAN CHOSE FROM THE FOLLOWING [facility] [address] [facility]. [facility] [address] [facility]. [facility] [address] [facility] [facility] [address] [facility] [address] [facility] [facility]. [address] [facility]. [facility] YOU HAVE RECEIVED A MEDICAL SCREENING EXAM AND THE RESULTS INDICATE THAT YOU DO NOT HAVE A CONDITION THAT REQUIRES URGENT TREATMENT IN THE EMERGENCY DEPARTMENT. FURTHER EVALUATION AND TREATMENT OF YOUR CONDITION CAN WAIT UNTIL YOU ARE SEEN IN YOUR DOCTORS OFFICE WITHIN THE NEXT 1-2 DAYS. IT IS YOUR RESPONSIBILITY TO MAKE AN APPOINTMENT FOR FOLOW-UP CARE. IF YOU HAVE A PRIMARY DOCTOR --you should call your primary doctor and schedule and appointment IF YOU DO NOT HAVE A PRIMARY DOCTOR YOU CAN CALL OUR PHYSICIAN REFERRAL HOTLINE AT . IF YOU CAN NOT AFFORD TO SEE A PHYSICIAN YOU CAN CHOSE FROM THE FOLLOWING [facility] INSTITUTIONS: [facility] [address] [place], [place] [id number] [place] [address] [address] [place] [address] [facility] [address] [place] [address] [facility] Additional Instructions: Call your primary care doctor TOMORROW for an appointment during the next 2-3 days.See the doctor sooner or return here if your condition worsens before your appointment time. JACE URIOSTEGUI PA-C Feb 17, 2018 13:04
== END 2018-02-17 12:21 | disposition home or self-care (01) ==
LOC: FTE 11:30
DX: B34.9 Viral infection, unspecified (principal)
CPT/HCPCS: 81025; 99283; Z7610

== ENCOUNTER 2018-09-05 03:56 | Emergency (ER) | payer BC ==
[~2018-09-05] VITALS: Ht 160 cm; Wt 70.5 kg
[~2018-09-05 03:56] MED LIST changes: +ACET500C5 PO; +D-ME473S2 PO
[2018-09-05 03:58] VITALS: Ht 160 cm; Wt 70.5 kg
[2018-09-05] MEDS ORDERED: LACTATED RINGER'S 1,000 ML IV STA (04:05)
[2018-09-05] MEDS ORDERED: FAMOTIDINE 20 MG INJ IV STA (04:05)
[2018-09-05] MEDS ORDERED: ONDANSETRON 4 MG INJ IV STA (04:05)
--- NOTE | 2018-09-05 04:31 | ERD ---
ER Documentation Chief Complaint Chief Complaint drunk & vomiting HPI This is a 22-year-old female with no previous medical problems who presents to the emergency room after being brought in by her boyfriend for evaluation of alcohol intoxication. The patient and patient's boyfriend state that she was drinking alcohol. They do not know exactly how much alcohol she was drinking. The patient denies any homicidal suicidal ideation and was brought to the ER for further evaluation ROS All systems reviewed and are negative except as per history of present illness. Medications Home Meds Active Scripts Acetaminophen* (Tylophen*) 500 Mg Capsule, 1 CAP PO Q6H PRN for PAIN AND OR ELEVATED TEMP, #20 CAP Prov:JACE URIOSTEGUI PA-C 02/17/18 Dextromethorphan Hb-Promethazine Hcl* (Promethazine DM* Syrup) 473 Ml Syrup, 5 ML PO Q6 PRN for COUGH, #120 ML Prov:JACE URIOSTEGUI PA-C 02/17/18 Ondansetron (Ondansetron Odt) 4 Mg Tab.rapdis, 4 MG PO Q6H PRN for NAUSEA AND/OR VOMITING, #10 TAB Prov:JACE URIOSTEGUI PA-C 02/17/18 Ciprofloxacin Hcl* (Ciprofloxacin Hcl*) 500 Mg Tablet, 500 MG PO BID for 10 Days, TAB Prov:DEBORAH RAMIREZ NP 11/12/17 Phenazopyridine Hcl* (Pyridium*) 200 Mg Tab, 200 MG PO TID PRN for URINARY PAIN, #6 TAB Prov:DEBORAH RAMIREZ NP 11/12/17 Ondansetron (Ondansetron Odt) 4 Mg Tab.rapdis, 4 MG PO Q6H PRN for NAUSEA AND/OR VOMITING, #10 TAB Prov:DEBORAH RAMIREZ NP 11/12/17 Hydrocodone/Acetaminophen ([place] 5-325 Tablet) 1 Each Tablet, 1 TAB PO Q6H PRN for SEVERE PAIN LEVEL 7-10, #7 TAB Prov:DEBORAH RAMIREZ NP 11/12/17 Ondansetron Hcl* (Zofran*) 4 Mg Tablet, 4 MG PO Q8H PRN for NAUSEA AND/OR V OMITING, #30 TAB Prov:TIMOTHY FISHER 06/18/17 Ondansetron Hcl* (Zofran*) 4 Mg Tablet, 4 MG PO Q6H for NAUSEA AND/OR VOMITING, #30 TAB Prov:JOEL STUBBS PA-C 08/05/16 Naproxen* (Naprosyn*) 500 Mg Tablet, 500 MG PO BID PRN for PAIN AND/OR INFLAMMATION, #30 TAB Prov:JOEL STUBBS PA-C 08/05/16 Hydrocodone/Acetaminophen ([place] 5-325 Tablet) 1 Each Tablet, 1 TAB PO Q6H PRN for PAIN, #10 TAB Prov:JOEL STUBBS PA-C 08/05/16 Ibuprofen* (Motrin*) 400 Mg Tab, 400 MG PO Q6H PRN for PAIN AND OR ELEVATED TEMP, #30 Prov:ANA HAMMOND PA-C 01/09/15 Allergies Allergies: Coded Allergies: No Known Allergy (Unverified , 12/07/14) PMhx/Soc History of Surgery: Yes (removal of cyst to tailbone) Anesthesia Reaction: No Hx Neurological Disorder: No Hx Respiratory Disorders: No Hx Cardiac Disorders: No Hx Psychiatric Problems: No Hx Miscellaneous Medical Probl: Yes (Kidney stone, ovarian cyst) Hx Alcohol Use: No Hx Substance Use: Yes (marijuana) Hx Tobacco Use: No Smoking Status: Unknown if ever smoked Physical Exam Vitals Vital Signs Date Temp Pulse Resp B/P (MAP) Pulse Ox O2 O2 Flow FiO2 Time Delivery Rate 09/05/18 98.3 68 22 118/84 98 03:58 (95) Physical Exam Const: No acute distress, smells of alcohol Head: Atraumatic Eyes: Normal Conjunctiva ENT: Normal External Ears, Nose and Mouth. Neck: Full range of motion. No meningismus. Resp: Clear to auscultation bilaterally Cardio: Regular rate and rhythm, no murmurs Abd: Soft, non tender, non distended. Normal bowel sounds Skin: No petechiae or rashes Back: No midline or flank tenderness Ext: No cyanosis, or edema Neur: Awake and alert Psych: Normal Mood and Affect Result Diagram: 09/05/18 0414 09/05/18413 Results 24 hrs Laboratory Tests Test 09/05/18 04:14 White Blood Count 11.7 10^3/ul Red Blood Count 4.34 10^6/ul Hemoglobin 13.1 g/dl Hematocrit 38.4 % Mean Corpuscular Volume 88.5 fl Mean Corpuscular Hemoglobin 30.2 pg Mean Corpuscular Hemoglobin Concent 34.1 g/dl Red Cell Distribution Width 12.7 % Platelet Count 294 10^3/UL Mean Platelet Volume 8.7 fl Immature Granulocytes % 0.400 % Neutrophils % 62.1 % Lymphocytes % 30.3 % Monocytes % 5.1 % Eosinophils % 1.5 % Basophils % 0.6 % Nucleated Red Blood Cells % 0.0 /100WBC Immature Granulocytes # 0.050 10^3/ul Neutrophils # 7.3 10^3/ul Lymphocytes # 3.5 10^3/ul Monocytes # 0.6 10^3/ul Eosinophils # 0.2 10^3/ul Basophils # 0.1 10^3/ul Nucleated Red Blood Cells # 0.0 10^3/ul Sodium Level 148 mmol/L Potassium Level 3.4 mmol/L Chloride Level 109 mmol/L Carbon Dioxide Level 22 mmol/L Anion Gap 17 Blood Urea Nitrogen 10 mg/dl Creatinine 0.64 mg/dl Est Glomerular Filtrat Rate mL/min > 60 mL/min Glucose Level 127 mg/dl Calcium Level 9.7 mg/dl Total Bilirubin 0.4 mg/dl Direct Bilirubin 0.00 mg/dl Indirect Bilirubin 0.4 mg/dl Aspartate Amino Transf (AST/SGOT) 25 IU/L Alanine Aminotransferase (ALT/SGPT) 22 IU/L Alkaline Phosphatase 82 IU/L Total Protein 8.3 g/dl Albumin 4.9 g/dl Globulin 3.40 g/dl Albumin/Globulin Ratio 1.44 Ethyl Alcohol Level 120.0 mg/dl Current Medications Medications Dose Sig/Lamberto Start Time Status Last (Trade) Ordered Route PRN Stop Time Admin Dose Reason Admin Lactated 1,000 ml @ Q1H STAT 09/05/18 09/05/18 Ringer's 1,000 mls/hr IV 04:05 04:16 09/05/18 05:04 Ondansetron 4 mg ONCE STAT 09/05/18 DC 09/05/18 HCl (Zofran IV 04:05 04:15 Inj) 09/05/18 04:07 Famotidine 20 mg ONCE STAT 09/05/18 DC 09/05/18 (Pepcid Iv) IV 04:05 04:16 09/05/18 04:07 Procedures/MDM This 22-year-old female presents to the ER for evaluation of alcohol ingestion. On my exam the patient is arousable and protecting her airway. An IV was established patient was given IV Zofran and Pepcid due to the fact that she was complaining of nausea and vomiting. She was given 1 L of lactated Ringer's, and alcohol levels 120. The patient is resting comfortably at this time and will be discharged when she is clinically sober. She does have her boyfriend here at bedside who is willing to take her home Departure Diagnosis: Primary Impression: Alcoholic intoxication MERLY CHOU DO Sep 05, 2018 04:31
[2018-09-05] MEDS ORDERED: ONDA4TAB14 PO (05:00)
[2018-09-05 05:40] VITALS: BP 108/63; PULSE 55; RESP 15
== END 2018-09-05 05:41 | disposition home or self-care (01) ==
LOC: E/R 03:56
DX: F10.129 Alcohol abuse with intoxication, unspecified (principal)
CPT/HCPCS: 80053; 80307; 85025; 96374; 96375; J2405; J7120; Z7502; Z7610